=== PATIENT | male | born 1990 | race Caucasian/White ===

== ENCOUNTER 2019-05-17 16:08 | Emergency (ER) | payer SELFPAY ==
[~2019-05-17] VITALS: Ht 154.9 cm; Wt 71.2 kg
[2019-05-17 16:20] VITALS: Ht 154.9 cm; Wt 71.2 kg
[2019-05-17 19:40] VITALS: BP 114/64
== END 2019-05-17 19:40 | disposition home or self-care (01) ==
LOC: ED 16:08
DX: J11.1 Influenza due to unidentified influenza virus with other respiratory manifestations (principal); H92.03 Otalgia, bilateral
CPT/HCPCS: 87804; J1100; J1885